=== PATIENT | female | born 1995 | race American Indian/Alaskan Native ===

== ENCOUNTER 2017-07-06 12:03 | Emergency (ER) | payer OTHER ==
[2017-07-06 12:59] VITALS: BP 135/96
[2017-07-06] MEDS ORDERED: BENADRYL PO ONE (16:13)
--- NOTE | 2017-07-06 22:45 | Emergency Department Report ---
Entered by ASHLEE GRIFFITHS, acting as scribe for MATHIEU THEODORE NP. - General Chief complaint: Skin/Abscess/Foreign Body Stated complaint: RASH Time Seen by Provider: 07/06/17 14:17 Source: patient Mode of arrival: Ambulatory Limitations: No Limitations - History of Present Illness Initial comments: This is a 21 year old female nontoxic, well nourished in appearance, no acute signs of distress presents with rash, itching, and bumps to body from 2 days ago. Patient reports she was outside with a lot of mosquitoes and the next morning she noticed swelling and itching to bilateral upper extremity, left LE, and facial area. Patient denies insect bite, change in diet, or changes in detergent. Patient reports taking Benadryl with relief. Patient stated the swelling is subsiding in multiple areas. Patient denies pus, drainage, fever, chills, numbness, tingling, chest pain, or SOB. Patient has PMHx of asthma. NKDA. GREER complaint: rash -: Gradual, days(s) (2) Location: LUE, R hand, LLE Severity: moderate Severity scale (0 -10): 4 Consistency: constant Improves with: none Worsens with: none Context: none Associated symptoms: denies other symptoms Treatments Prior to Arrival: Benadryl - Related Data Previous Rx's Medication Instructions Recorded Last Taken Type Permethrin 5% [Acticin 5% CREAM] 60 gm TP ONCE #1 tube 01/16/15 Unknown Rx Prednisone [Prednisone 10 mg 10 mg PO .TAPER #1 tab.ds.pk 01/16/15 Unknown Rx (6-Day Pack, 21 Tabs)] diphenhydrAMINE [Benadryl CAP] 25 mg PO Q6HR PRN #20 capsule 07/06/17 Unknown Rx predniSONE [Deltasone] 20 mg PO BID #10 tab 07/06/17 Unknown Rx Allergies Allergy/AdvReac Type Severity Reaction Status Date / Time No Known Allergies Allergy Unverified 01/16/15 18:55 Abscess Boil HPI - HPI Chief Complaint: Skin/Abscess/Foreign Body Stated Complaint: RASH Time Seen by Provider: 07/06/17 14:17 Duration: 2 Days History: Yes Insect Bite (mosquito), No Fever, No Pain, No Purulent Drainage, No Numbness, No Foreign Body, No Previous History Home Medications: Previous Rx's Medication Instructions Recorded Last Taken Type Permethrin 5% [Acticin 5% CREAM] 60 gm TP ONCE #1 tube 01/16/15 Unknown Rx Prednisone [Prednisone 10 mg 10 mg PO .TAPER #1 tab.ds.pk 01/16/15 Unknown Rx (6-Day Pack, 21 Tabs)] diphenhydrAMINE [Benadryl CAP] 25 mg PO Q6HR PRN #20 capsule 07/06/17 Unknown Rx predniSONE [Deltasone] 20 mg PO BID #10 tab 07/06/17 Unknown Rx Allergies/Adverse Reactions: Allergies Allergy/AdvReac Type Severity Reaction Status Date / Time No Known Allergies Allergy Unverified 01/16/15 18:55 ED Review of Systems Comment: All other systems reviewed and negative Constitutional: denies: chills, fever, weakness Eyes: denies: eye pain, eye discharge, vision change ENT: denies: ear pain, throat pain Respiratory: denies: cough, shortness of breath, wheezing Cardiovascular: denies: chest pain, palpitations Endocrine: no symptoms reported Gastrointestinal: denies: abdominal pain, nausea, vomiting, diarrhea Genitourinary: denies: urgency, dysuria, discharge Musculoskeletal: denies: back pain, joint swelling, arthralgia Skin: rash, pruritus, other (swelling) Neurological: denies: headache, weakness, paresthesias Psychiatric: denies: anxiety, depression Hematological/Lymphatic: denies: easy bleeding, easy bruising ED Past Medical Hx - Past Medical History Hx Asthma: Yes - Social History Smoking Status: Never Smoker Substance Use Type: None - Medications Home Medications: Home Medications Medication Instructions Recorded Confirmed Last Taken Type Permethrin 5% [Acticin 5% CREAM] 60 gm TP ONCE #1 tube 01/16/15 Unknown Rx Prednisone [Prednisone 10 mg 10 mg PO .TAPER #1 tab.ds.pk 01/16/15 Unknown Rx (6-Day Pack, 21 Tabs)] diphenhydrAMINE [Benadryl CAP] 25 mg PO Q6HR PRN #20 capsule 07/06/17 Unknown Rx predniSONE [Deltasone] 20 mg PO BID #10 tab 07/06/17 Unknown Rx ED Physical Exam - General Limitations: No Limitations General appearance: alert, in no apparent distress - Head Head exam: Present: atraumatic, normocephalic, normal inspection - Eye Eye exam: Present: normal appearance, PERRL, EOMI. Absent: scleral icterus, conjunctival injection, nystagmus, periorbital swelling, periorbital tenderness - ENT ENT exam: Present: normal exam, normal orophraynx, mucous membranes moist, TM's normal bilaterally, normal external ear exam, other (uvula midline. No angioedema present. No swelling.) - Neck Neck exam: Present: normal inspection, full ROM. Absent: tenderness, meningismus, lymphadenopathy, thyromegaly - Respiratory Respiratory exam: Present: normal lung sounds bilaterally. Absent: respiratory distress, wheezes, rales, rhonchi, stridor, chest wall tenderness, accessory muscle use, decreased breath sounds, prolonged expiratory - Cardiovascular Cardiovascular Exam: Present: regular rate, normal rhythm, normal heart sounds. Absent: bradycardia, tachycardia, irregular rhythm, systolic murmur, diastolic murmur, rubs, gallop - GI/Abdominal GI/Abdominal exam: Present: soft, normal bowel sounds. Absent: distended, tenderness, guarding, rebound, rigid, diminished bowel sounds - Rectal Rectal exam: Present: deferred - Extremities Exam Extremities exam: Present: normal inspection, full ROM, normal capillary refill. Absent: tenderness, pedal edema, joint swelling, calf tenderness - Back Exam Back exam: Present: normal inspection, full ROM. Absent: tenderness, CVA tenderness (R), CVA tenderness (L), muscle spasm, paraspinal tenderness, vertebral tenderness, rash noted - Neurological Exam Neurological exam: Present: alert, oriented X3, CN II-XII intact, normal gait, reflexes normal - Psychiatric Psychiatric exam: Present: normal affect, normal mood - Skin Skin exam: Present: rash, urticaria, other (slight swelling. NO pus or drainge noted. No surrounding cellulitis. No induration. No fluctuance. Not warm to touch.). Absent: erythema ED Course Vital Signs 07/06/17 12:54 Temperature 99.2 F Pulse Rate 90 Respiratory 18 Rate Blood Pressure 135/96 O2 Sat by Pulse 100 Oximetry - Reevaluation(s) Reevaluation #1: 07/06/17 16:42 Patient speaks in full sentences with no signs of distress. ED Medical Decision Making - Medical Decision Making ED course; this is a 21-year-old female that presents with allergic reaction vs. mosquito bites 1- pt was examined by myself. Symptoms are consisted with allergic reaction vs. mosquito bites. The patient received Benadryl and Solu-Medrol. Patient was struck if not operate any machinery due to sedation/drowsiness of Benadryl. Patient's is currently present at bedside that he would drive the patient home. 2- patient be treated with prednisone and Benadryl at discharge. Patient was instructed to follow up with a primary care doctor's 5 days or symptoms such as increased swelling, pus, drainage, redness, fever, chills, or worsening symptoms return to the ER as soon as possible. 3- At time time of discharge, the patient does not seem toxic or ill in appearance. No acute signs of distress noted. Patient agrees to discharge treatment plan of care. No further questions noted by the patient. ED Disposition Clinical Impression: Allergic reaction Qualifiers: Encounter type: initial encounter Qualified Code(s): T78.40XA - Allergy, unspecified, initial encounter Mosquito bite Qualifiers: Encounter type: initial encounter Qualified Code(s): W57.XXXA - Bitten or stung by nonvenomous insect and other nonvenomous arthropods, initial encounter Disposition: DC-01 TO HOME OR SELFCARE Is pt being admited?: No Does the pt Need Aspirin: No Condition: Stable Instructions: Urticaria (ED), Diphenhydramine (By mouth), Prednisone (By mouth) Additional Instructions: follow up with a primary care doctor's 5 days or symptoms such as increased swelling, pus, drainage, redness, fever, chills, or worsening symptoms return to the ER as soon as possible. Take Benadryl and prednisone as prescribed. Do not operate any machinery while taking Benadryl due to drowsiness. Prescriptions: diphenhydrAMINE [Benadryl CAP] 25 mg PO Q6HR PRN #20 capsule PRN Reason: Itching predniSONE [Deltasone] 20 mg PO BID #10 tab Referrals: THI HUNT MD [Primary Care Provider] - 3-5 Days PEGGY MARCUS MD [Staff Physician] - 3-5 Days [facility] [Outside] - 3-5 Days [facility] [Outside] - 3-5 Days Forms: Work/School Release Form(ED) This documentation as recorded by the AYE carl PEARL,accurately reflects the service I personally performed and the decisions made by me,MATHIEU THEODORE, POPPY.
== END 2017-07-06 16:58 | disposition home or self-care (01) ==
LOC: ED 12:03
DX: S60.562A Insect bite (nonvenomous) of left hand, initial encounter (principal); S60.561A Insect bite (nonvenomous) of right hand, initial encounter; S80.862A Insect bite (nonvenomous), left lower leg, initial encounter; S80.861A Insect bite (nonvenomous), right lower leg, initial encounter; J45.909 Unspecified asthma, uncomplicated; T78.40XA Allergy, unspecified, initial encounter; W57.XXXA Bitten or stung by nonvenomous insect and other nonvenomous arthropods, initial encounter; Y93.89 Activity, other specified; Y92.89 Other specified places as the place of occurrence of the external cause; Y99.8 Other external cause status
CPT/HCPCS: 96372; 99282; J2930

== ENCOUNTER 2017-08-09 12:09 | Emergency (ER) | payer SELFPAY ==
[2017-08-09 13:42] VITALS: BP 121/67
[2017-08-09 14:10] LABS: Basophils % (Auto) 0.4 % (0.0-1.8); Eosinophils % (Auto) 0.7 % (0.0-4.3); Hematocrit 42.9 % (30.3-42.9); Hemoglobin 14.4 gm/dl (10.1-14.3); Mean Corpuscular HGB Conc 34 % (30-34); Mean Corpuscular Hemoglobin 28 pg (28-32); Mean Corpuscular Volume 82 fl (79-97); Platelet Count 291 K/mm3 (140-440); Red Blood Count 5.25 M/mm3 (3.65-5.03); Red Cell Distribution Width 14.8 % (13.2-15.2); White Blood Count 6.9 K/mm3 (4.5-11.0)
[2017-08-09 14:49] LABS: Alanine Aminotransferase 14 units/L (7-56); Albumin 4.4 g/dL (3.9-5); Albumin/Globulin Ratio 1.2 %; Alkaline Phosphatase 61 units/L (35-129); Anion Gap 20 mmol/L; BUN/Creatinine Ratio 16.66; Blood Urea Nitrogen 10 mg/dL (7-17); Calcium 9.6 mg/dL (8.4-10.2); Carbon Dioxide 24 mmol/L (22-30); Chloride 98.1 mmol/L (98-107); Glucose 83 mg/dL (65-100); Lipase 13 units/L (13-60); Sodium 138 mmol/L (137-145); Total Protein 8.2 g/dL (6.3-8.2)
[2017-08-09 17:03] LABS: Bacteria,Urine 1+ /HPF (Negative); Bilirubin,Urine NEG (Negative); Blood,Urine MOD (Negative); Ketones,Urine NEG (Negative); Leukocyte Esterase,Urine NEG (Negative); Mucus,Urine 3+ /HPF; Nitrite,Urine NEG (Negative)
== END 2017-08-09 16:00 | disposition left against medical advice (07) ==
LOC: ED 12:09
DX: N93.9 Abnormal uterine and vaginal bleeding, unspecified (principal); R11.11 Vomiting without nausea; Z53.21 Procedure and treatment not carried out due to patient leaving prior to being seen by health care provider
CPT/HCPCS: 36415; 80053; 81001; 83690; 84702; 85025; 86850; 86900; 86901